=== PATIENT | female | born 1990 | race Two or more races ===

== ENCOUNTER 2022-07-06 15:26 | Emergency (ER) | payer OTHER ==
[~2022-07-06] VITALS: Ht 160 cm; Wt 63.5 kg
[2022-07-06] MEDS ORDERED: PRENATAL + DHA1 EAC1 PO (15:39)
[2022-07-06] MEDS ORDERED: FOLIC ACID0.8 M1 PO (15:40)
== END 2022-07-06 21:54 | disposition home or self-care (01) ==
LOC: ER 15:26
DX: G43.909 Migraine, unspecified, not intractable, without status migrainosus (principal); R11.10 Vomiting, unspecified

== ENCOUNTER 2022-09-13 12:13 | Emergency (ER) | payer OTHER ==
[~2022-09-13] VITALS: Ht 162.6 cm; Wt 67.1 kg
[~2022-09-13 12:13] MED LIST: FOLIC ACID0.8 M1 PO; PRENATAL + DHA1 EAC1 PO
== END 2022-09-13 18:19 | disposition home or self-care (01) ==
LOC: ER 12:13
DX: O26.892 Other specified pregnancy related conditions, second trimester (principal); Z3A.18 18 weeks gestation of pregnancy; J40 Bronchitis, not specified as acute or chronic; Z20.822 Contact with and (suspected) exposure to COVID-19

== ENCOUNTER → 2022-12-31 | Emergency (ER) | payer OTHER ==
[~2022-12-31] VITALS: Ht 160 cm; Wt 72.1 kg
== END | disposition home or self-care (01) ==
LOC: ER 11:03
DX: R42 Dizziness and giddiness (principal)

== ENCOUNTER 2023-02-08 11:15 | Inpatient (IN) | payer OTHER ==
[~2023-02-08] VITALS: Ht 160 cm; Wt 72.6 kg
[2023-02-15] MEDS ORDERED: IBUPROFEN800 MG PO (08:34)
[2023-02-15] MEDS ORDERED: GAS RELIEF125 MG PO (08:34)
[2023-02-15] MEDS ORDERED: FERROUS SULFAT325 MG PO (08:34)
== END 2023-02-15 10:18 | disposition home or self-care (01) | DRG 785 ==
LOC: O/R 02-12 06:26 → SURH 02-12 11:15 → OB/GYN 02-12 13:39 → SURH 02-12 13:45 → OB/GYN 02-12 14:16
PROVIDERS: ADMIT Specialist; ATTEND Specialist
PROC: 0UB70ZZ Excision of Bilateral Fallopian Tubes, Open Approach (ICD-10-PCS; 2023-02-12)
PROC: 4A1HXCZ Monitoring of Products of Conception, Cardiac Rate, External Approach (ICD-10-PCS; 2023-02-12)
PROC: 10D00Z1 Extraction of Products of Conception, Low, Open Approach (ICD-10-PCS; principal; 2023-02-12 13:45)
DX: O32.1XX0 Maternal care for breech presentation, not applicable or unspecified (principal); O36.63X0 Maternal care for excessive fetal growth, third trimester, not applicable or unspecified; Z3A.39 39 weeks gestation of pregnancy; Z37.0 Single live birth; Z20.822 Contact with and (suspected) exposure to COVID-19

== ENCOUNTER 2024-03-07 08:37 | Emergency (ER) | payer OTHER ==
[~2024-03-07] VITALS: Ht 129.5 cm; Wt 68.0 kg
[~2024-03-07 08:37] MED LIST changes: +FERROUS SULFAT325 MG PO; +GAS RELIEF125 MG PO; +IBUPROFEN800 MG PO
[2024-03-07 09:27] LABS: HEMATOCRIT 39.2 % (36.0-45.00); HEMOGLOBIN 13.3 g/dL (12.0-15.00); MEAN CELL VOLUME 88.8 fL (80.00-100.00); MEAN CORPUSCULAR HEMOGLOBIN 30.1 pg (27.00-32.0); MEAN CORPUSCULAR HGB CONC 33.9 g/dl (32.0-36.0); PLATELET COUNT 300 K/uL (150-450); RED BLOOD COUNT 4.42 M/uL (4.00-6.00); RED CELL DISTRIBUTION WIDTH 13.7 % (11.5-14.5)
== END 2024-03-07 11:11 | disposition home or self-care (01) ==
LOC: ER 08:38
PROVIDERS: Emergency Medicine
DX: B34.9 Viral infection, unspecified (principal); Z20.822 Contact with and (suspected) exposure to COVID-19

== ENCOUNTER 2025-05-03 07:59 | Emergency (ER) | payer OTHER ==
[~2025-05-03] VITALS: Ht 160 cm; Wt 68.0 kg
[2025-05-03 08:13] VITALS: BP 123/86; O2SAT 97
[2025-05-03] MEDS ORDERED: BENZONATATE 200 MG CAPSULE PO ONE (08:45)
[2025-05-03] MEDS ORDERED: CEFTRIAXONE SODIUM 1,000 MG VIAL IM ONE (08:45)
[2025-05-03] MEDS ORDERED: LEVALBUTEROL HCL 1.25 MG/3 ML SOLUTION IH ONE ×4 (08:45→12:30)
[2025-05-03] MEDS ORDERED: IPRATROPIUM BROMIDE 0.5 MG/2.5 ML AMPUL.NEB IH ONE ×2 (08:45→11:12)
[2025-05-03] MEDS ORDERED: METHYLPREDNISOLONE SOD SUCC 125 MG VIAL IM ONE (08:45)
[2025-05-03] MEDS ORDERED: CETIRIZINE HCL 5 MG/5 ML ML PO ONE (08:45)
[2025-05-03] MEDS ORDERED: FAMOtidine 10 MG/ML (4ML VIAL) IV PUSH ONE (08:45)
[2025-05-03] MEDS ORDERED: METHYLPREDNISOLONE SOD SUCC 125 MG VIAL ONE (08:46)
[2025-05-03] MEDS ORDERED: CETIRIZINE HCL 5MG/5ML BLIST.PACK PO ONE (08:47)
[2025-05-03] MEDS ORDERED: FAMOTIDINE/PF 20 MG/2 ML VIAL ONE (08:47)
[2025-05-03] MEDS ORDERED: CEFTRIAXONE SODIUM 1,000 MG VIAL ONE (08:47)
[2025-05-03 09:20] LABS: BASO % 0.3 % (0.1-1.2); EOS # 0.07 (0.04-0.54); EOS % 0.8 % (0.7-7.0); HEMATOCRIT 37.2 % (34.1-44.9); HEMOGLOBIN 12.2 g/dL (11.2-15.7); LYMPH % 15.6 % (19.3-53.1); MEAN CORPUSCULAR HEMOGLOBIN 29.1 pg (25.6-32.2); MONO # 0.79 (0.24-0.82); MONO % 8.8 % (4.7-12.5); NEUT # 6.68 (1.56-6.13); NEUT % 74.3 % (34.0-71.1); PLATELET COUNT 299 K/uL (163-369); RED BLOOD COUNT 4.19 M/uL (3.93-5.22)
[2025-05-03 10:26] LABS: COVID-19 AG NEGATIVE (NEGATIVE); INFLUENZA A AG NEGATIVE (NEGATIVE); INFLUENZA B AG NEGATIVE (NEGATIVE)
[2025-05-03] MEDS ORDERED: PEPCID AC20 MG PO (14:02)
[2025-05-03] MEDS ORDERED: MEDROLPACK PO (14:02)
[2025-05-03] MEDS ORDERED: BENZONATATE200 M1 PO (14:02)
[2025-05-03] MEDS ORDERED: SINGULAIR10 MG PO (14:02)
[2025-05-03] MEDS ORDERED: LEVALBUTER0.63 MG/3 IH (14:02)
[2025-05-03] MEDS ORDERED: AMOX-CLAV 500-1 EACH PO (14:02)
== END 2025-05-03 14:08 | disposition home or self-care (01) ==
LOC: ER 08:12
PROVIDERS: General Practice
DX: J40 Bronchitis, not specified as acute or chronic (principal); Z20.822 Contact with and (suspected) exposure to COVID-19